=== PATIENT | female | born 2000 | race Caucasian/White ===

== ENCOUNTER 2023-04-06 01:32 | Emergency (ER) | payer SELFPAY ==
[2023-04-06 01:42] VITALS: BP 118/74; PULSE 108; RESP 18; TEMP 97.2; BMI 25.0
[2023-04-06] MEDS ORDERED: ONDANSETRON *ODT* 4 MG TABLET SL ONE (01:58)
[2023-04-06] MEDS ORDERED: ONDANSETRON *ODT* 4 MG TABLET ONE (02:13)
== END 2023-04-06 04:36 | disposition home or self-care (01) ==
LOC: JER 01:32
DX: F12.90 Cannabis use, unspecified, uncomplicated (principal); R07.89 Other chest pain; R53.83 Other fatigue
CPT/HCPCS: 99283-25; Q0162

== ENCOUNTER 2023-05-13 10:15 | Emergency (ER) | payer OTHER ==
[2023-05-13 10:33] VITALS: RESP 18; BMI 27.4
[2023-05-13] MEDS ORDERED: ACETAMINOPHEN 500 MG TABLET (FP) PO ONE (11:16)
[2023-05-13] MEDS ORDERED: AMOX TR/POT CLAV 875MG/125MG TABLETS (FP) PO ONE (11:16)
[2023-05-13] MEDS ORDERED: AMOX TR/POT CLAV 875MG/125MG TABLETS (FP) ONE (11:22)
[2023-05-13] MEDS ORDERED: ACETAMINOPHEN 500 MG TABLET (FP) ONE (11:23)
[2023-05-13 12:54] VITALS: BP 100/60; PULSE 102
[2023-05-13 13:10] VITALS: TEMP 98.7
== END 2023-05-13 13:17 | disposition home or self-care (01) ==
LOC: JERFT 10:15 → JER 10:15 → JERFT 13:17
DX: R09.81 Nasal congestion (principal); R51.9 Headache, unspecified; R05.9 Cough, unspecified; J02.9 Acute pharyngitis, unspecified; R09.3 Abnormal sputum; R50.9 Fever, unspecified; J10.1 Influenza due to other identified influenza virus with other respiratory manifestations; J01.90 Acute sinusitis, unspecified; Z20.822 Contact with and (suspected) exposure to COVID-19
CPT/HCPCS: 0241U-QW; 71046-TC-FY; 99284-25